=== PATIENT | female | born 1960 | race Caucasian/White ===

== ENCOUNTER 2019-12-26 12:41 | Emergency (ER) | payer SELFPAY ==
[2019-12-26] MEDS ORDERED: Triple Antibiotic Oint 1 GM Packet ONE (13:04)
== END 2019-12-26 13:08 | disposition home or self-care (01) ==
LOC: BURERS 12:41
DX: S39.012A Strain of muscle, fascia and tendon of lower back, initial encounter (principal); S70.312A Abrasion, left thigh, initial encounter; E10.9 Type 1 diabetes mellitus without complications; E78.5 Hyperlipidemia, unspecified; E78.00 Pure hypercholesterolemia, unspecified; Z79.899 Other long term (current) drug therapy; W19.XXXA Unspecified fall, initial encounter
CPT/HCPCS: 99283

== ENCOUNTER 2022-03-24 10:01 | Emergency (ER) | payer BC, SELFPAY ==
[2022-03-24] MEDS ORDERED: Ondansetron PF 4 MG/2 ML Vial ONE (10:17)
[2022-03-24] MEDS ORDERED: Ketorolac Tromethamine 30 MG/ML VIAL ONE (10:17)
[2022-03-24 10:27] LABS: #Basophils 0.1 thou/uL (0.0-0.2); #Eosinphils 0.3 thou/uL (0.0-0.7); #Lymphocytes 1.9 thou/uL (1.20-3.40); #Monocytes 0.6 thou/uL (0.11-0.59); #Neutrophils 8.1 thou/uL (1.40-6.50); %Basophils 0.7 % (0.0-1.0); %Eosinophils 2.9 % (0.0-10.0); %Lymphocytes 17.2 % (21.0-51.0); %Monocytes 5.2 % (0.0-10.0); %Neutrophils 74.1 % (42.0-75.0); Hemoglobin 13.5 g/dL (12.0-16.0); Mean Corpuscular HGB CONC 33.3 g/dL (32.0-36.0); Mean Corpuscular Hemoglobin 30.6 pg (27.0-31.0); Mean Corpuscular Volume 92.2 fL (78.0-98.0); Mean Platelet Volume 8.4 fL (7.4-10.4); Platelet Count 316 thou/uL (130-400); RBC Distribution Width 12.2 % (11.5-14.5); Red Blood Cell (RBC) Count 4.41 mill/uL (4.20-5.40); White Blood Cell (WBC) Count 10.9 thou/uL (4.8-10.8)
[2022-03-24 10:44] LABS: ALT (SGPT) 16 U/L (8-55); AST (SGOT) 18 U/L (5-34); Albumin 4.1 g/dL (3.5-5.0); Alkaline Phosphatase 114 U/L (40-110); Anion Gap 15 mmol/L (10-20); BUN (Urea Nitrogen) 9 mg/dL (9.8-20.1); Bilirubin, Total 0.3 mg/dL (0.2-1.2); Calc. Creatinine Clearance 0 mL/min (70-130); Calcium 9.5 mg/dL (7.8-10.44); Carbon Dioxide 25 mmol/L (22-29); Chloride 105 mmol/L (98-107); Estimated GFR 100; Globulin 2.9 g/dL (2.4-3.5); Glucose 131 mg/dL (70-105); Potassium 3.9 mmol/L (3.5-5.1); Sodium 141 mmol/L (136-145)
[2022-03-24 11:11] LABS: Bilirubin Negative (Negative); Blood, Urine Moderate (Negative); Clarity Slightly Cloudy (Clear); Glucose, Urine (Dipstick) Negative (Negative); Ketone, Urine Negative (Negative); Leukocyte Moderate (Negative); Nitrite Negative (Negative); Protein, Urine (Dipstick) Negative (Neg-Trace); Urobilinogen 0.2 mg/dL (Less than 2); pH, Urine 5.5 (5.0-9.0)
[2022-03-24 11:12] LABS: Specific Gravity, Urine 1.006 (1.002-1.036)
[2022-03-24 11:20] LABS: Bacteria/HPF Rare-Few HPF (None Seen); Squamous Epithelial None Seen HPF (0-3); WBC/HPF 21-50 HPF (0-3)
[2022-03-24] MEDS ORDERED: Sulfameth/Trimethoprim DS 800-160mg TAB ONE (11:30)
== END 2022-03-24 11:37 | disposition home or self-care (01) ==
LOC: BURERS 10:01
DX: N10 Acute pyelonephritis (principal); E11.9 Type 2 diabetes mellitus without complications; E78.00 Pure hypercholesterolemia, unspecified; I10 Essential (primary) hypertension; Z87.891 Personal history of nicotine dependence; Z79.899 Other long term (current) drug therapy
CPT/HCPCS: 80053; 81003; 81015; 85025; 87086; 96361; 96374; 96375; J1885; J2405

== ENCOUNTER 2022-07-13 13:31 | Outpatient (CLI) | payer BC, OTHER | END 2022-07-13 13:32 | disposition home or self-care (01) | LOC: BURRAD 13:31 | PROVIDERS: ATTEND Family Medicine | DX: S63.92XA Sprain of unspecified part of left wrist and hand, initial encounter (principal) ==

== ENCOUNTER 2022-08-20 17:06 | Emergency (ER) | payer BC ==
[2022-08-20] MEDS ORDERED: Acetaminophen 500 MG TAB ONE (17:28)
== END 2022-08-20 18:43 | disposition home or self-care (01) ==
LOC: BURERS 17:06
DX: S20.212A Contusion of left front wall of thorax, initial encounter (principal); I25.10 Atherosclerotic heart disease of native coronary artery without angina pectoris; E11.9 Type 2 diabetes mellitus without complications; I10 Essential (primary) hypertension; E78.5 Hyperlipidemia, unspecified; Z87.891 Personal history of nicotine dependence; Z79.899 Other long term (current) drug therapy; Z79.82 Long term (current) use of aspirin; Z79.4 Long term (current) use of insulin; W10.9XXA Fall (on) (from) unspecified stairs and steps, initial encounter
CPT/HCPCS: 71250

== ENCOUNTER 2022-10-26 18:25 | Emergency (ER) | payer BC, OTHER ==
[2022-10-26] MEDS ORDERED: HYDROcodone/Acetaminophen 5/325 mg Tablet ONE (19:02)
[2022-10-26] MEDS ORDERED: Ibuprofen 200 MG TAB ONE (19:02)
[2022-10-26] MEDS ORDERED: AMOXicillin 250 MG CAP ONE (19:02)
[2022-10-26] MEDS ORDERED: Bupivacaine 0.5% 10 ML VIAL ONE (19:15)
[2022-10-26] MEDS ORDERED: Lidocaine 1% PF 5 ML VIAL ONE (19:15)
[2022-10-26] MEDS ORDERED: Bacitracin 1 PK ONE ×2 (20:08→20:09)
== END 2022-10-26 20:28 | disposition home or self-care (01) ==
LOC: BURERS 18:25
DX: S61.210A Laceration without foreign body of right index finger without damage to nail, initial encounter (principal); I10 Essential (primary) hypertension; E11.9 Type 2 diabetes mellitus without complications; E78.5 Hyperlipidemia, unspecified; I25.10 Atherosclerotic heart disease of native coronary artery without angina pectoris; W54.0XXA Bitten by dog, initial encounter; Z87.891 Personal history of nicotine dependence; Z79.4 Long term (current) use of insulin
CPT/HCPCS: 12004; J3490

== ENCOUNTER 2022-10-28 19:24 | Emergency (ER) | payer OTHER, BC ==
[2022-10-28] MEDS ORDERED: Morphine 2 MG/ML VIAL ONE (19:58)
[2022-10-28] MEDS ORDERED: Ondansetron PF 4 MG/2 ML Vial ONE (19:58)
[2022-10-28 20:16] LABS: #Basophils 0.1 thou/uL (0.0-0.2); #Eosinphils 0.1 thou/uL (0.0-0.7); #Lymphocytes 1.6 thou/uL (1.20-3.40); #Monocytes 0.8 thou/uL (0.11-0.59); #Neutrophils 11.4 thou/uL (1.40-6.50); %Basophils 0.9 % (0.0-1.0); %Eosinophils 0.7 % (0.0-10.0); %Lymphocytes 11.6 % (21.0-51.0); %Neutrophils 80.8 % (42.0-75.0); Hemoglobin 12.7 g/dL (12.0-16.0); Mean Corpuscular HGB CONC 33.3 g/dL (32.0-36.0); Mean Corpuscular Hemoglobin 30.3 pg (27.0-31.0); Mean Platelet Volume 7.6 fL (7.4-10.4); Platelet Count 293 10x3/uL (130-400); RBC Distribution Width 12.5 % (11.5-14.5); Red Blood Cell (RBC) Count 4.18 mill/uL (4.20-5.40); White Blood Cell (WBC) Count 14.1 10x3/uL (4.8-10.8)
[2022-10-28] MEDS ORDERED: Piperacillin/Tazobactam 4.5 GM VIAL ONE (20:22)
[2022-10-28] MEDS ORDERED: Sodium Chloride 0.9% 100 ML ONE (20:23)
[2022-10-28 20:30] LABS: ALT (SGPT) 12 U/L (8-55); AST (SGOT) 15 U/L (5-34); Albumin 4.3 g/dL (3.4-4.8); Alkaline Phosphatase 123 U/L (40-110); Anion Gap 15 mmol/L (10-20); BUN (Urea Nitrogen) 8 mg/dL (9.8-20.1); Bilirubin, Total 0.5 mg/dL (0.2-1.2); Calc. Creatinine Clearance 0 mL/min (70-130); Calcium 8.8 mg/dL (7.8-10.44); Carbon Dioxide 22 mmol/L (23-31); Chloride 100 mmol/L (98-107); Estimated GFR 85; Globulin 3.2 g/dL (2.4-3.5); Glucose 278 mg/dL (80-115); Potassium 3.4 mmol/L (3.5-5.1); Protein, Total 7.5 g/dL (5.8-8.1); Sodium 134 mmol/L (136-145)
== END 2022-10-28 21:12 | disposition short-term general hospital (02) ==
LOC: BURERS 19:24
DX: S61.452A Open bite of left hand, initial encounter (principal); E11.9 Type 2 diabetes mellitus without complications; I10 Essential (primary) hypertension; I25.10 Atherosclerotic heart disease of native coronary artery without angina pectoris; E78.5 Hyperlipidemia, unspecified; W54.0XXA Bitten by dog, initial encounter; Z79.4 Long term (current) use of insulin; Z87.891 Personal history of nicotine dependence
CPT/HCPCS: 80053; 83605; 85025; 87040; 87070; 87077; 87186; 87205; 96365; 96375; J2272; J2405; J2543; J3490